=== PATIENT | male | born 1985 | race Caucasian/White ===

== ENCOUNTER 2016-11-26 13:11 | Emergency (ER) | payer OTHER ==
[2016-11-26 16:06] LABS: BASOPHIL 0.6 % (0-2); EOSINOPHIL 4.1 % (0-5); HGB 14.1 g/dl (13.2-18.0); LYMPHOCYTE 31.1 % (15-48); MCH 28.1 pg (25.0-31.0); MCHC 33.6 g/dL (32.0-36.0); MCV 83.8 fL (78.0-100.0); MPV 9.3 fL (6.0-9.5); NEUTROPHIL 56.2 % (41-80); PLT 342 K/uL (150-400); RBC 5.01 M/uL (4.70-6.00); RDW 13.6 % (11.5-14.0); WBC 6.6 K/uL (4.0-10.5)
[2016-11-26 16:27] LABS: CREATININE 1.2 mg/dL (0.7-1.2); POTASSIUM 4.1 mmol/L (3.5-5.1)
[2016-11-26 17:20] LABS: BILIRUBIN NEGATIVE (NEGATIVE); BLOOD NEGATIVE Ery/uL (NEGATIVE); CLARITY CLEAR (CLEAR); COLOR YELLOW (YELLOW); GLUCOSE (U) NORMAL (NORMAL); KETONE (U) NEGATIVE (NEGATIVE); LEUKOCYTES NEGATIVE Leu/uL (NEGATIVE); NITRITE NEGATIVE (NEGATIVE); PROTEIN NEGATIVE (NEGATIVE)
[2016-11-26 17:24] LABS: AMPHETAMINES NEGATIVE (NEGATIVE); BARBITURATES NEGATIVE (NEGATIVE); BENZODIAZEPINES NEGATIVE (NEGATIVE); COCAINE NEGATIVE (NEGATIVE); MARIJUANA (THC) NEGATIVE (NEGATIVE); METHADONE NEGATIVE (NEGATIVE); TRICYCLIC ANTIDEPRESSANT NEGATIVE (NEGATIVE)
== END 2016-11-26 17:54 | disposition home or self-care (01) ==
LOC: FER 13:11
PROVIDERS: Nurse Practitioner Family
DX: R55 Syncope and collapse (principal); R11.0 Nausea; Z88.6 Allergy status to analgesic agent; Z88.1 Allergy status to other antibiotic agents
CPT/HCPCS: 36415; 80048; 80305; 81003; 85025; 93005